=== PATIENT | female | born 1995 | race Two or more races ===

== ENCOUNTER 2019-05-23 16:45 | Emergency (ER) | payer OTHER ==
--- NOTE | 2019-05-23 18:52 | ED ---
Laceration/Wound HPI - HPI Summary HPI Summary: 23 year old female presents with facial laceration. She states that she was scratched by her cat. Area is not actively bleeding. no foreign body. Denies any change in vision. Tetanus up-to-date. Has no medical conditions. no other injury. - History of Current Complaint Stated Complaint: FACIAL INJURY FROM CAT PER PT Time Seen by Provider: 05/23/19 18:17 Pain Intensity: 2 PMH/Surg Hx/FS Hx/Imm Hx Endocrine/Hematology History: Denies: Hx Anticoagulant Therapy Respiratory History: Denies: Hx Asthma - Immunization History Immunizations Up to Date: Yes Infectious Disease History: No Infectious Disease History: Denies: Traveled Outside the [place] in Last 30 Days - Family History Known Family History: Positive: Non-Contributory - Social History Alcohol Use: Occasionally Substance Use Type: Reports: None Smoking Status (MU): Never Smoked Tobacco Review of Systems Negative: Fever Negative: Chest Pain Negative: Shortness Of Breath Positive: Other - laceration face All Other Systems Reviewed And Are Negative: Yes Physical Exam Triage Information Reviewed: Yes Vital Signs On Initial Exam: Initial Vitals Temp Pulse Resp BP Pulse Ox 98.4 F 79 18 127/90 97 05/23/19 16:48 05/23/19 16:48 05/23/19 16:48 05/23/19 16:48 05/23/19 16:48 Vital Signs Reviewed: Yes Appearance: Positive: Well-Appearing Skin: Positive: Warm, Dry, Other - 2cm superficial right side of face Head/Face: Positive: Normal Head/Face Inspection Eyes: Positive: Normal, EOMI, FOX, Conjunctiva Clear ENT: Positive: Pharynx normal Respiratory/Lung Sounds: Positive: Clear to Auscultation, Breath Sounds Present Cardiovascular: Positive: Normal, RRR Musculoskeletal: Positive: Normal Neurological: Positive: Normal Psychiatric: Positive: Normal Procedures - Sedation Patient Received Moderate/Deep Sedation with Procedure: No - Laceration/Wound Repair 1 Location: face Description: Linear Length, Depth and Shape: 2cm superficial Irrigated w/ Saline (ccs): 500 Closure: Skin Adhesive Diagnostics - Vital Signs Vital Signs Temp Pulse Resp BP Pulse Ox 05/23/19 16:48 98.4 F 79 18 127/90 97 - Laboratory Lab Statement: Any lab studies that have been ordered have been reviewed, and results considered in the medical decision making process. Laceration Repair Course/Dx - Course Course Of Treatment: 23 year old female presents with facial laceration. She states that she was scratched by her cat. Area is not actively bleeding. No foreign body. Denies any change in vision. Tetanus up-to-date. Has no medical conditions. On exam has 2 cm superficial laceration on right face near right eye. No tarsal plate involvement. Cleaned area and placed glue. Told to keep very clean dry. Patient understands and agrees with plan. - Differential Dx Differental Diagnoses: Abrasion, Avulsion, Laceration - Clinical Impression Provider Diagnoses: Laceration Discharge ED - Sign-Out/Discharge Documenting (check all that apply): Patient Departure - Discharge Plan Condition: Good Disposition: HOME Patient Education Materials: Skin Adhesive Care (ED) Referrals: No Primary Care Phys,NOPCP [Primary Care Provider] - Additional Instructions: Take Tylenol or ibuprofen for pain as needed every 6 hours Keep dry for 24 hours Glue will fall off on own Avoid scrubbing area Use sunscreen on area after laceration has healed Return to ED if develop any signs of infection or any new or worsening symptoms - Billing Disposition and Condition Condition: GOOD Disposition: Home
[2019-05-23 19:07] VITALS: BP 104/64
== END 2019-05-23 19:04 | disposition home or self-care (01) ==
LOC: ED 16:45
DX: S01.81XA Laceration without foreign body of other part of head, initial encounter (principal); W55.03XA Scratched by cat, initial encounter; Y92.9 Unspecified place or not applicable
CPT/HCPCS: 99282